=== PATIENT | male | born 1965 | race African-American/Black ===

== ENCOUNTER 2020-01-26 13:26 | Inpatient (IN) | payer OTHER ==
--- NOTE | 2020-01-26 13:38 | BHS.RME ---
Substance Use & Tx History - Substance Use History Alcohol Substance amount: one gallon Vodka, 10 x 24 ounce beers Frequency of use: Daily Substance route: Oral Date of Last Use: 01/26/20 Cocaine-Crack Substance amount: $40 Frequency of use: Less than 3 times per week Substance route: Smoking Date of Last Use: 01/23/20 Nicotine Substance amount: 10-15 cigs Frequency of use: Daily Substance route: Smoking Date of Last Use: 01/26/20 - Last Treatment Date of last treatment: one gallon Vodka, beer: 10 cans of 24 ounce each Where was last treatment: Rehab Physical/Psych/Mental Status - Behavior General Behavior: Decreased activity Eye Contact: Normal - Cooperativeness Cooperativeness: Cooperative - Thinking Thought Processes: Tight Thought content: Future oriented - Physical Health Problems Is patient presently having any pain?: Yes (left side of chest s/p fractured ribs last week) Does patient presently have any injuries (include location): Yes (as above) Does patient currently have a fever: No CIWA Nausea/Vomitin-Mild Nausea/No Vomiting Muscle Tremors: 4-Moderate,w/Arms Extend Anxiety: 3 Agitation: 2 Paroxysmal Sweats: No Perspiration Orientation: 2-Disoriented Date<2 days Tacttile Disturbances: 0-None Auditory Disturbances: 0-None Visual Disturbances: 0-None Headache: 0-None Present CIWA-Ar Total Score: 12
[2020-01-26 14:48] VITALS: BMI 24.2
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
[2020-01-26] MEDS ORDERED: MENTHOL/PHENOL 1 EACH UD MM PRN (15:24)
[2020-01-26] MEDS ORDERED: NICOTINE POLACRILEX 2 MG GUM BUC PRN (15:24)
[2020-01-26] MEDS ORDERED: ONDANSETRON *ODT* 4 MG TABLET SL PRN (15:24)
[2020-01-26] MEDS ORDERED: MAGNESIUM HYDROX 2400MG/30ML ORAL SUSPENSION 30 ML CUP PO PRN (15:24)
[2020-01-26] MEDS ORDERED: MAG HYDROX/AL HYDROX/SIMETH 30 ML UNIT-DOSE CUP PO PRN (15:24)
[2020-01-26] MEDS ORDERED: ACETAMINOPHEN 325 MG TABLET (FP) PO PRN ×2 (15:24)
[2020-01-26] MEDS ORDERED: MAGNESIUM CITRATE 300 ML BOTTLE PO PRN (15:24)
[2020-01-26] MEDS ORDERED: chlordiazePOXIDE HCL 25 MG CAPSULE PO PRN (15:24)
[2020-01-26] MEDS ORDERED: hydrOXYzine PAMOATE 25 MG CAPSULE (FP) PO PRN (15:26)
[2020-01-26] MEDS ORDERED: KETOCONAZOLE 2 % SHAMPOO 120 ML BOTTLE TP SCH (15:30)
[2020-01-26] MEDS: IBUPROFEN 400 MG TABLET (FP) PO PRN (16:33)
[2020-01-26] MEDS: chlordiazePOXIDE HCL 25 MG CAPSULE PO SCH ×2 (16:33→22:29)
[2020-01-26] MEDS: METHOCARBAMOL 500 MG TABLET PO PRN (16:33)
[2020-01-26] MEDS: THIAMINE HCL 100 MG TABLET (FP) PO SCH (22:29)
[2020-01-26] MEDS: MELATONIN 5 MG TABLETS PO SCH (22:30)
[2020-01-27] MEDS: chlordiazePOXIDE HCL 25 MG CAPSULE PO SCH ×4 (05:41→22:35)
[2020-01-27] MEDS: IBUPROFEN 400 MG TABLET (FP) PO PRN ×2 (05:43→17:23)
[2020-01-27] MEDS: NICOTINE 7 MG/24 HOURS TOPICAL PATCH TD SCH (10:08)
[2020-01-27] MEDS: PRENATAL VITAMINS W/ FOLIC ACID TABLET (FP) PO SCH (10:09)
[2020-01-27 11:52] LABS: HEMATOCRIT 37.4 % (35.4-49); HEMOGLOBIN 12.2 GM/dL (11.7-16.9); MCH 30.8 pg (25.7-33.7); MCHC 32.7 g/dl (32.0-35.9); MEAN CELL VOLUME 94.3 fl (80-96); MEAN PLT VOLUME 7.9 fl (7.5-11.1); PLATELET COUNT 140 K/MM3 (134-434); RBC 3.96 M/mm3 (4.00-5.60); RDW 12.9 % (11.9-15.9); WHITE BLOOD COUNT 4.4 K/mm3 (4.0-10.0)
[2020-01-27 11:58] LABS: ALBUMIN 3.4 g/dl (3.4-5.0); BLOOD UREA NITROGEN 8.3 mg/dL (7-18); CALCIUM 9.1 mg/dL (8.5-10.1); CREATININE 0.7 mg/dL (0.55-1.3); POTASSIUM 3.9 mmol/L (3.5-5.1)
--- NOTE | 2020-01-27 13:50 | PN ---
[facility] CIWA - CIWA Score Nausea/Vomitin-Mild Nausea/No Vomiting Muscle Tremors: 3 Anxiety: 3 Agitation: 0-Normal Activity Paroxysmal Sweats: 2 Orientation: 0-Oriented Tacttile Disturbances: 2-Mild Itch/Numbness/Burn Auditory Disturbances: 0-None Visual Disturbances: 0-None Headache: 0-None Present CIWA-Ar Total Score: 11 S Progress Note (SOAP) Subjective: Tremors, Anxious, Nausea, Fatigue. Objective: Patient A & O X 3; In No Acute Distress. 01/27/20 13:51 Vital Signs Temperature 95.6 F L 01/27/20 06:16 Pulse Rate 67 01/27/20 06:16 Respiratory Rate 20 01/27/20 06:16 Blood Pressure 118/51 L 01/27/20 06:16 O2 Sat by Pulse Oximetry (%) 93 L 01/27/20 06:16 Laboratory Tests 01/27/20 01/27/20 01/27/20 07:50 07:50 07:50 WBC 4.4 RBC 3.96 L Hgb 12.2 Hct 37.4 MCV 94.3 MCH 30.8 MCHC 32.7 RDW 12.9 Plt Count 140 MPV 7.9 Sodium 136 Potassium 3.9 Chloride 100 Carbon Dioxide 31 Anion Gap 5 L BUN 8.3 Creatinine 0.7 Est GFR (CKD-EPI)AfAm 122.27 Est GFR (CKD-EPI)NonAf 105.50 Random Glucose 90 Calcium 9.1 Total Bilirubin 2.0 H AST 43 H ALT 33 Alkaline Phosphatase 133 H Total Protein 8.0 Albumin 3.4 Syphilis Serology Reactive A* RPR Titer 01/27/20 07:50 WBC RBC Hgb Hct MCV MCH MCHC RDW Plt Count MPV Sodium Potassium Chloride Carbon Dioxide Anion Gap BUN Creatinine Est GFR (CKD-EPI)AfAm Est GFR (CKD-EPI)NonAf Random Glucose Calcium Total Bilirubin AST ALT Alkaline Phosphatase Total Protein Albumin Syphilis Serology RPR Titer Reactive 1:1 H Lab Results Noted. Detox Admission RPR Result noted: Reactive A; Reactive 1:1. Patient reports that he completed treatment for Syphilis in the past. 01/27/20 15:32 Assessment: 01/27/20 13:55 WITHDRAWAL SYMPTOMS. ELEVATED AST LEVEL ELEVATED ALKALINE PHOSPHATASE LEVEL. REACTIVE RPR. 01/27/20 13:56 Plan: Continue Detox. Repeat Total Bilirubin level on 01/29/2020 for elevated level noted on Detox Admission Laboratory Assessment.
[2020-01-27] MEDS: METHOCARBAMOL 500 MG TABLET PO PRN (17:23)
[2020-01-27] MEDS: MELATONIN 5 MG TABLETS PO SCH (22:35)
[2020-01-27] MEDS: THIAMINE HCL 100 MG TABLET (FP) PO SCH (22:35)
[2020-01-28] MEDS: chlordiazePOXIDE HCL 25 MG CAPSULE PO SCH ×4 (05:33→23:48)
[2020-01-28] MEDS: IBUPROFEN 400 MG TABLET (FP) PO PRN (05:33)
[2020-01-28] MEDS ORDERED: MASKS NR ONE (07:24)
[2020-01-28] MEDS: PRENATAL VITAMINS W/ FOLIC ACID TABLET (FP) PO SCH (10:25)
[2020-01-28] MEDS: NICOTINE 7 MG/24 HOURS TOPICAL PATCH TD SCH (10:25)
[2020-01-28] MEDS: METHOCARBAMOL 500 MG TABLET PO PRN ×2 (10:25→18:07)
--- NOTE | 2020-01-28 10:36 | PN ---
[facility] CIWA - CIWA Score Nausea/Vomitin-No Nausea/No Vomiting Muscle Tremors: 2 Anxiety: 3 Agitation: 1-Slight > Activity Paroxysmal Sweats: 2 Orientation: 0-Oriented Tacttile Disturbances: 0-None Auditory Disturbances: 0-None Visual Disturbances: 0-None Headache: 0-None Present CIWA-Ar Total Score: 8 BHS Progress Note (SOAP) Subjective: Complaints of tremors, sweats, and anxiety. Objective: 01/28/20 10:34 Vital Signs 01/28/20 01/28/20 06:57 08:29 Temperature 97.5 F L 97.5 F L Pulse Rate 65 73 Respiratory 16 18 Rate Blood Pressure 134/72 140/83 O2 Sat by Pulse 98 98 Oximetry (%) Laboratory Last Values WBC 4.4 K/mm3 (4.0-10.0) 01/27/20 07:50 RBC 3.96 M/mm3 (4.00-5.60) L 01/27/20 07:50 Hgb 12.2 GM/dL (11.7-16.9) 01/27/20 07:50 Hct 37.4 % (35.4-49) 01/27/20 07:50 MCV 94.3 fl (80-96) 01/27/20 07:50 MCH 30.8 pg (25.7-33.7) 01/27/20 07:50 MCHC 32.7 g/dl (32.0-35.9) 01/27/20 07:50 RDW 12.9 % (11.9-15.9) 01/27/20 07:50 Plt Count 140 K/MM3 (134-434) 01/27/20 07:50 MPV 7.9 fl (7.5-11.1) 01/27/20 07:50 Sodium 136 mmol/L (136-145) 01/27/20 07:50 Potassium 3.9 mmol/L (3.5-5.1) 01/27/20 07:50 Chloride 100 mmol/L (98-107) 01/27/20 07:50 Carbon Dioxide 31 mmol/L (21-32) 01/27/20 07:50 Anion Gap 5 MMOL/L (8-16) L 01/27/20 07:50 BUN 8.3 mg/dL (7-18) 01/27/20 07:50 Creatinine 0.7 mg/dL (0.55-1.3) 01/27/20 07:50 Est GFR (CKD-EPI)AfAm 122.27 01/27/20 07:50 Est GFR (CKD-EPI)NonAf 105.50 01/27/20 07:50 Random Glucose 90 mg/dL (74-106) 01/27/20 07:50 Calcium 9.1 mg/dL (8.5-10.1) 01/27/20 07:50 Total Bilirubin 2.0 mg/dL (0.2-1) H 01/27/20 07:50 AST 43 U/L (15-37) H 01/27/20 07:50 ALT 33 U/L (13-61) 01/27/20 07:50 Alkaline Phosphatase 133 U/L (45-117) H 01/27/20 07:50 Total Protein 8.0 g/dl (6.4-8.2) 01/27/20 07:50 Albumin 3.4 g/dl (3.4-5.0) 01/27/20 07:50 Syphilis Serology Reactive (NONREACTIVE) A* 01/27/20 07:50 RPR Titer Reactive 1:1 (NONREACTIVE) H 01/27/20 07:50 Labs noted with reactive RPR Assessment: 01/28/20 10:35 Alert and oriented x3, in no acute respiratory distress. Full ROM, ambulatory in the unit without assistance. Skin warm to touch. Withdrawal symptoms. Reactive RPR ( already treated) Plan: Continue detox protocol.
[2020-01-28] MEDS: BISMUTH SUBSALICYLATE 262 MG/15 ML BTL PO PRN (18:02)
[2020-01-28] MEDS: MELATONIN 5 MG TABLETS PO SCH (23:49)
[2020-01-28] MEDS: THIAMINE HCL 100 MG TABLET (FP) PO SCH (23:49)
[2020-01-29] MEDS ORDERED: chlordiazePOXIDE HCL 10 MG CAPSULE PO PRN
[2020-01-29] MEDS: BISMUTH SUBSALICYLATE 262 MG/15 ML BTL PO PRN ×2 (05:18→10:10)
[2020-01-29] MEDS: chlordiazePOXIDE HCL 10 MG CAPSULE PO SCH ×4 (05:18→22:31)
[2020-01-29] MEDS: IBUPROFEN 400 MG TABLET (FP) PO PRN ×2 (05:19→22:30)
--- NOTE | 2020-01-29 07:58 | PN ---
S CIWA - CIWA Score Nausea/Vomitin Muscle Tremors: 2 Anxiety: 2 Agitation: 2 Paroxysmal Sweats: No Perspiration Orientation: 0-Oriented Tacttile Disturbances: 1-Very Mild Itch/Numbness Auditory Disturbances: 0-None Visual Disturbances: 0-None Headache: 1-Very Mild CIWA-Ar Total Score: 10 S Progress Note (SOAP) Subjective: alert,irritable,anxious,interrupted sleep,aching pain,ambulation on the unit Objective: 01/29/20 10:49 Vital Signs Temperature 97.8 F 01/29/20 05:15 Pulse Rate 74 01/29/20 05:15 Respiratory Rate 16 01/29/20 05:15 Blood Pressure 128/78 01/29/20 05:15 O2 Sat by Pulse Oximetry (%) 97 01/29/20 05:15 01/29/20 10:50 Laboratory Last Values WBC 4.4 K/mm3 (4.0-10.0) 01/27/20 07:50 RBC 3.96 M/mm3 (4.00-5.60) L 01/27/20 07:50 Hgb 12.2 GM/dL (11.7-16.9) 01/27/20 07:50 Hct 37.4 % (35.4-49) 01/27/20 07:50 MCV 94.3 fl (80-96) 01/27/20 07:50 MCH 30.8 pg (25.7-33.7) 01/27/20 07:50 MCHC 32.7 g/dl (32.0-35.9) 01/27/20 07:50 RDW 12.9 % (11.9-15.9) 01/27/20 07:50 Plt Count 140 K/MM3 (134-434) 01/27/20 07:50 MPV 7.9 fl (7.5-11.1) 01/27/20 07:50 Sodium 136 mmol/L (136-145) 01/27/20 07:50 Potassium 3.9 mmol/L (3.5-5.1) 01/27/20 07:50 Chloride 100 mmol/L (98-107) 01/27/20 07:50 Carbon Dioxide 31 mmol/L (21-32) 01/27/20 07:50 Anion Gap 5 MMOL/L (8-16) L 01/27/20 07:50 BUN 8.3 mg/dL (7-18) 01/27/20 07:50 Creatinine 0.7 mg/dL (0.55-1.3) 01/27/20 07:50 Est GFR (CKD-EPI)AfAm 122.27 01/27/20 07:50 Est GFR (CKD-EPI)NonAf 105.50 01/27/20 07:50 Random Glucose 90 mg/dL (74-106) 01/27/20 07:50 Calcium 9.1 mg/dL (8.5-10.1) 01/27/20 07:50 Total Bilirubin 0.9 mg/dL (0.2-1) 01/29/20 07:10 AST 43 U/L (15-37) H 01/27/20 07:50 ALT 33 U/L (13-61) 01/27/20 07:50 Alkaline Phosphatase 133 U/L (45-117) H 01/27/20 07:50 Total Protein 8.0 g/dl (6.4-8.2) 01/27/20 07:50 Albumin 3.4 g/dl (3.4-5.0) 01/27/20 07:50 Syphilis Serology Reactive (NONREACTIVE) A* 01/27/20 07:50 RPR Titer Reactive 1:1 (NONREACTIVE) H 01/27/20 07:50 treated for syphilis in the past Assessment: 01/29/20 10:52 withdrawal symptom Plan: continue detox librium regimen
[2020-01-29] MEDS ORDERED: KETOCONAZOLE 2 % SHAMPOO 120 ML BOTTLE TP SCH (09:23)
[2020-01-29] MEDS: FLUOCINONIDE 0.05% CREAM (60 GM TUBE) TP SCH ×4 (10:11→22:29)
[2020-01-29] MEDS: NICOTINE 7 MG/24 HOURS TOPICAL PATCH TD SCH (10:11)
[2020-01-29] MEDS: PRENATAL VITAMINS W/ FOLIC ACID TABLET (FP) PO SCH (10:12)
[2020-01-29] MEDS: THIAMINE HCL 100 MG TABLET (FP) PO SCH (22:31)
[2020-01-29] MEDS: MELATONIN 5 MG TABLETS PO SCH (22:33)
[2020-01-30] MEDS: chlordiazePOXIDE HCL 10 MG CAPSULE PO SCH ×2 (06:13→17:46)
[2020-01-30] MEDS: NICOTINE 7 MG/24 HOURS TOPICAL PATCH TD SCH (10:05)
[2020-01-30] MEDS: IBUPROFEN 400 MG TABLET (FP) PO PRN ×2 (10:07→17:47)
[2020-01-30] MEDS: FLUOCINONIDE 0.05% CREAM (60 GM TUBE) TP SCH ×4 (10:08→22:14)
[2020-01-30] MEDS: PRENATAL VITAMINS W/ FOLIC ACID TABLET (FP) PO SCH (10:08)
--- NOTE | 2020-01-30 11:47 | PN ---
S CIWA - CIWA Score Nausea/Vomitin-No Nausea/No Vomiting Muscle Tremors: 2 Anxiety: 1-Mildly Anxious Agitation: 1-Slight > Activity Paroxysmal Sweats: No Perspiration Orientation: 0-Oriented Tacttile Disturbances: 0-None Auditory Disturbances: 0-None Visual Disturbances: 0-None Headache: 0-None Present CIWA-Ar Total Score: 4 BHS Progress Note (SOAP) Subjective: rib pain d/t a fall weeks ago Objective: 01/30/20 11:46 Vital Signs Temperature 96.9 F L 01/30/20 05:07 Pulse Rate 64 01/30/20 05:07 Respiratory Rate 16 01/30/20 05:07 Blood Pressure 135/72 01/30/20 05:07 O2 Sat by Pulse Oximetry (%) 96 01/30/20 05:07 aaox3 ambulating with cane no acute distress Assessment: 01/30/20 11:46 withdrawals Plan: continue detox motrin prn lidocaine patch d/c in am
[2020-01-30] MEDS: LIDOCAINE 5% TOPICAL PATCH TP SCH (13:30)
[2020-01-30] MEDS: BISMUTH SUBSALICYLATE 262 MG/15 ML BTL PO PRN (17:50)
[2020-01-30] MEDS ORDERED: LIDOCAINE PATCH REMOVAL MC SCH (22:00)
[2020-01-30] MEDS: THIAMINE HCL 100 MG TABLET (FP) PO SCH (22:14)
[2020-01-30] MEDS: MELATONIN 5 MG TABLETS PO SCH (22:14)
[2020-01-30] MEDS: METHOCARBAMOL 500 MG TABLET PO PRN (22:17)
[2020-01-31] MEDS ORDERED: chlordiazePOXIDE HCL 10 MG CAPSULE PO ONE (05:00)
[2020-01-31] MEDS: METHOCARBAMOL 500 MG TABLET PO PRN (05:15)
[2020-01-31] MEDS: IBUPROFEN 400 MG TABLET (FP) PO PRN (05:15)
--- NOTE | 2020-01-31 08:17 | DS ---
[facility] Detox Discharge Summary Admission Date: 01/26/20 Discharge Date: 01/31/20 - History Present History: Alcohol Dependence, Cocaine Dependence - Physical Exam Results Vital Signs: Vital Signs Temperature 97.8 F 01/31/20 05:07 Pulse Rate 88 01/31/20 05:07 Respiratory Rate 01/31/20 05:07 Blood Pressure 125/74 01/31/20 05:07 O2 Sat by Pulse Oximetry (%) 95 01/31/20 05:07 Pertinent Admission Physical Exam Findings: Vital Signs Temperature 97.8 F 01/31/20 05:07 Pulse Rate 88 01/31/20 05:07 Respiratory Rate 01/31/20 05:07 Blood Pressure 125/74 01/31/20 05:07 O2 Sat by Pulse Oximetry (%) 95 01/31/20 05:07 Laboratory Tests 01/27/20 01/27/20 01/27/20 07:50 07:50 07:50 WBC 4.4 RBC 3.96 L Hgb 12.2 Hct 37.4 MCV 94.3 MCH 30.8 MCHC 32.7 RDW 12.9 Plt Count 140 MPV 7.9 Sodium 136 Potassium 3.9 Chloride 100 Carbon Dioxide 31 Anion Gap 5 L BUN 8.3 Creatinine 0.7 Est GFR (CKD-EPI)AfAm 122.27 Est GFR (CKD-EPI)NonAf 105.50 Random Glucose 90 Calcium 9.1 Total Bilirubin 2.0 H AST 43 H ALT 33 Alkaline Phosphatase 133 H Total Protein 8.0 Albumin 3.4 Syphilis Serology Reactive A* RPR Titer COVID-19 ([facility]) 01/27/20 01/27/20 01/29/20 07:50 15:17 07:10 WBC RBC Hgb Hct MCV MCH MCHC RDW Plt Count MPV Sodium Potassium Chloride Carbon Dioxide Anion Gap BUN Creatinine Est GFR (CKD-EPI)AfAm Est GFR (CKD-EPI)NonAf Random Glucose Calcium Total Bilirubin 0.9 AST ALT Alkaline Phosphatase Total Protein Albumin Syphilis Serology RPR Titer Reactive 1:1 H COVID-19 ([facility]) Not detected labs noted aaox3 ambulating no acute distress lungs CTA - Treatment Hospital Course: Detox Protocol Followed, Detoxed Safely, Responded well, Discharged Condition Good, Rehab Referral Accepted - Medication Discharge Medications: Ambulatory Orders Acetaminophen [Tylenol Extra Strength] 500 mg PO Q4H PRN 01/26/20 - Diagnosis (1) Alcohol dependence with withdrawal, uncomplicated Current Visit: Yes Status: Chronic (2) Cocaine use Current Visit: Yes Status: Chronic (3) Nicotine dependence Current Visit: Yes Status: Chronic Qualifiers: Nicotine product type: cigarettes Substance use status: uncomplicated Qualified Code(s): F17.210 - Nicotine dependence, cigarettes, uncomplicated (4) Ribs, multiple fractures Current Visit: Yes Status: Chronic Qualifiers: Laterality: left (5) Seborrheic dermatitis of scalp Current Visit: Yes Status: Chronic - AMA Did Patient Leave Against Medical Advice: No
[2020-01-31] MEDS: LIDOCAINE 5% TOPICAL PATCH TP SCH (10:05)
[2020-01-31] MEDS: PRENATAL VITAMINS W/ FOLIC ACID TABLET (FP) PO SCH (10:05)
[2020-01-31] MEDS: FLUOCINONIDE 0.05% CREAM (60 GM TUBE) TP SCH (10:06)
[2020-01-31] MEDS: NICOTINE 7 MG/24 HOURS TOPICAL PATCH TD SCH (10:07)
[2020-01-31 12:13] VITALS: BP 134/86; PULSE 78; TEMP 97.6
== END 2020-01-31 10:42 | disposition home or self-care (01) | DRG 774 ==
LOC: YASAS 13:26 → Y6N 15:09
PROVIDERS: ADMIT Allergy & Immunology; ATTEND Allergy & Immunology
PROC: HZ2ZZZZ Detoxification Services for Substance Abuse Treatment (ICD-10-PCS; principal; 2020-01-26)
DX: F10.230 Alcohol dependence with withdrawal, uncomplicated (principal); F14.20 Cocaine dependence, uncomplicated; F17.210 Nicotine dependence, cigarettes, uncomplicated; L21.9 Seborrheic dermatitis, unspecified; M19.90 Unspecified osteoarthritis, unspecified site; R74.0 Nonspecific elevation of levels of transaminase and lactic acid dehydrogenase [LDH]; R74.8 Abnormal levels of other serum enzymes; R76.8 Other specified abnormal immunological findings in serum; Z86.19 Personal history of other infectious and parasitic diseases; Z99.89 Dependence on other enabling machines and devices; S22.42XD Multiple fractures of ribs, left side, subsequent encounter for fracture with routine healing; S27.9XXD Injury of unspecified intrathoracic organ, subsequent encounter; Y08.89XD Assault by other specified means, subsequent encounter; Z59.0 Homelessness
CPT/HCPCS: 36415; 80053; 82247; 85027; 86593; 86780; U0003